=== PATIENT | female | born 1960 | race Caucasian/White ===

== ENCOUNTER 2017-01-07 13:55 | Emergency (ER) | payer OTHER ==
[2017-01-07 14:07] VITALS: BP 197/119; BMI 45.7
--- NOTE | 2017-01-07 15:12 | DR.EXTPAIN ---
HPI - Time seen Time seen: 03:09 - PCP Primary Care Physician: joann - Complaint/Symptoms Chief Complaint Doctor Comments: " i probably got bit by a spider on January 01." Pt c/o right arm pain, redness and swelling. Chief Complaint:: pt got bite by a spider on her right arm on december it has got worse since then - Nurses notes reviewed Nurses Notes Review: Yes - Source History Provided: Patient - Mode of arrival Mode of Arrival: Ambulatory - Timing Onset of Chief Complaint: 01/01/17 - Associated signs and symptoms Associated Signs and Symptoms: Pain PMH - PMH Past Medical History: Yes Past Medical History: Arthritis, Hypertension, Kidney Stones Past Surgical History: Yes Surgical History: Appendectomy, Tonsillectomy - Family History History of Family Medical Conditions: Yes Family Medical History: Diabetes Mellitus, Cancer, [place], Heart Failure, Sudden Cardiac , Hypertension - Social History Does patient currently use any type of tobacco product: No Have you used tobacco products in the last 12 months: No Type of Tobacco Use: None Does any household member use tobacco: No Alcohol Use: None Do you use any recreational Drugs:: No Lives With: Family Lives Where: Home - infectious screening In the last 2 months have you had wt loss of >10#?: NO Have you had fever, night sweats or hemotysis?: No Have you traveled outside the country in the last 6 months?: No Isolation: Standard ROS - Review of Systems Constitutional: No Symptoms Reported Eyes: No Symptoms Reported ENTM: No Symptoms Reported Respiratoy: No Symptoms Reported Cardiovascular: No Symptoms Reported Gastrointestinal/Abdominal: No Symptoms Reported Genitourinary: No Symptoms Reported Neurological: No Symptoms Reported Musculoskeletal: No Symptoms Reported Integumentary: Change in Color, Lesions, Itching, Wound Hematologic/Lymphatic: No Symptoms Reported Endocrine: No Symptoms Reported Psychiatric: No Symptoms Reported All Other Systems: Reviewed and Negative PE - Vital Signs Vitals: Temperature 98 F Pulse Rate 85 Respiratory Rate 20 Blood Pressure 197/119 O2 Sat by Pulse Oximetry 98 - General Limitations: No Limitations General Appearance: Alert, In No Apparent Distress - Chest Chest Inspection: Normal Inspection - Respiratory Respiratory Exam: Normal Lung Sounds Bilat - Cardiovascular Cardiovascular Exam: Regular Rate, Normal Rhythm, Normal Heart Sounds - Extremities Extremities Exam: Tenderness (flexor surface right forearm with soft ball size lesion with redness and TTP. No drainage is noted. ) - Diagnosis Discharge Problem: Abscess of forearm, right - Discharge Plan Condition: Stable - Follow ups/Referrals Follow ups/Referrals: MARY BHAKTA [Primary Care Provider] - 3 days - Instructions
[2017-01-07 15:37] LABS: BASOPHILS # (AUTO) 0.1 X10^3/uL (0.0-0.1); BASOPHILS % (AUTO) 0.6 % (0.2-1.0); EOSINOPHILS # (AUTO) 0.1 x10^3/uL (0.0-0.2); EOSINOPHILS % (AUTO) 1.1 % (0.9-2.9); HEMATOCRIT 45.4 % (36.0-47.0); HEMOGLOBIN 15.5 g/dL (12.0-16.0); LYMPHOCYTES # (AUTO) 1.7 X10^3/uL (1.3-2.9); LYMPHOCYTES % (AUTO) 14.8 % (21.0-51.0); MEAN CORPUSCULAR HEMOGLOBIN 29.8 pg (27.0-34.0); MEAN CORPUSCULAR HGB CONC 34.2 g/dL (33.0-35.0); MEAN CORPUSCULAR VOLUME 87.1 fL (80.0-100.0); MEAN PLATELET VOLUME 8.1 fL (7.4-11.0); MONOCYTES # (AUTO) 0.9 x10^3/uL (0.3-0.8); MONOCYTES % (AUTO) 7.9 % (0.0-13.0); NEUTROPHILS # (AUTO) 8.7 x10^3/uL (2.2-4.8); NEUTROPHILS % (AUTO) 75.6 % (42.0-75.0); PLATELET COUNT 386 X10^3/uL (150.0-450.0); RED BLOOD COUNT 5.21 X10^6/uL (3.5-5.4); RED CELL DISTRIBUTION WIDTH 14.7 % (11.6-16.5); WHITE BLOOD COUNT 11.5 X10^3/uL (3.6-10.0)
--- NOTE | 2017-01-07 15:49 | RAD ---
Right forearm, two views Indication: Spider bite, concern for abscess. Findings: There is diffuse subcutaneous stranding of the forearm. No soft tissue gas is identified. No cortical disruption, malalignment, or osteolysis of the radius or ulna. Impression: Nonspecific fat stranding of the forearm. No acute skeletal abnormality identified. Reported By:
== END 2017-01-07 16:00 | disposition home or self-care (01) ==
LOC: ER 14:11
DX: L02.413 Cutaneous abscess of right upper limb (principal)
CPT/HCPCS: 36415; 73090; 85025; 99282